=== PATIENT | female | born 1980 | race Caucasian/White ===

== ENCOUNTER 2017-06-10 01:55 | Emergency (ER) | payer OTHER ==
[~2017-06-10] VITALS: Ht 165.1 cm; Wt 117.9 kg
[~2017-06-10 01:55] MED LIST: ACET500 PO; ALBU90OI INH; ALPR1 PO; AMIT25 PO; BCP; BENZ100A PO; CEPH500 PO; CEPHALEXIN; CRUTCH4 USE; CYAN1000I IM; D3-5050000 UNIT PO; DOCU100 PO; ENOX40I SC; ENOX60I SC; ERGO50000 PO; FAMO20 PO; GABA100 PO; HYDACE10B PO; Kristalose20 GM PO; LORA.5 PO; Norco 5-325 Ta1 EACH PO; ONDA4 PO; ONDA4ODT SL; OXYACE5T PO; OXYC10TA19; Oxycodone HCl5 M1 PO; PARO20 PO; PROM25 PO; Pepcid20 MG PO; Percocet 5-3251 EACH PO; Phentermine HCl15 MG MT; Phentermine HCl30 MG PO; SERT50; SERT50 PO; SIME80CH PO; SULTRIDS PO; TIZANIDINE HCL4 MG PO; TRAM50; UNKOWN ABX; VENL25 MT; VIIBRYD20 MG PO; VITAMIN B12-FO1 EACH PO; Vistaril25 MG PO; WARF1; WARF5; Zanaflex4 MG PO
[2017-06-10 06:58] LABS: BASOPHILS ABSOLUTE AUTO 0.04 K/mm3 (0.00-0.23); BASOPHILS PERCENT AUTO 1 % (0-2); EOSINOPHILS ABSOLUTE AUTO 0.14 K/mm3 (0.00-0.68); EOSINOPHILS PERCENT AUTO 2 % (0-6); Hematocrit 41.2 % (33.0-51.0); Hemoglobin 13.8 g/dL (11.5-16.0); IMMATURE GRAN ABSOLUTE AUTO 0.04 K/mm3 (0.00-0.10); IMMATURE GRAN PERCENT AUTO 1 % (0-1); LYMPHOCYTES ABSOLUTE AUTO 2.47 K/mm3 (0.84-5.20); LYMPHOCYTES PERCENT AUTO 41 % (21-46); MONOCYTES ABSOLUTE AUTO 0.35 K/mm3 (0.16-1.47); MONOCYTES PERCENT AUTO 6 % (4-13); Mean Corpuscular HGB 30.1 pg (26.0-34.0); Mean Corpuscular HGB Conc 33.5 g/dL (31.5-36.5); Mean Corpuscular Volume 90 fL (80-100); Mean Platelet Volume 8.3 fL (9.1-12.4); NEUTROPHILS ABSOLUTE AUTO 3.06 K/mm3 (1.96-9.15); NEUTROPHILS PERCENT AUTO 50 % (41-73); Platelet Count 250 K/mm3 (150-400); RDW Coefficient Variation 12.3 % (11.7-14.2); RDW Standard Deviation 40.4 fL (35.1-46.3); Red Blood Cell Count 4.59 M/mm3 (3.80-5.20)
[2017-06-10 07:13] LABS: Anion Gap 6 mmol/L (6-16); Blood Urea Nitrogen 7 mg/dL (8-24); Bun/Creatinine Ratio 11.7 (12.0-20.0); CO2, Blood 26 mmol/L (21-32); Calcium, Blood 8.5 mg/dL (8.5-10.1); Chloride, Blood 109 mmol/L (98-108); Glomerular Filtration Rate >60 (60-); Glucose, Blood 95 mg/dL (70-99); Potassium, Blood 4.2 mmol/L (3.5-5.5); Sodium, Blood 141 mmol/L (136-145)
[2017-06-10] MEDS ORDERED: LORTAB 10 MG-3473 ML PO (07:38)
[2017-06-10] MEDS ORDERED: Prednisone20 MG PO (07:38)
== END 2017-06-10 07:49 | disposition home or self-care (01) ==
LOC: ER 01:55
PROVIDERS: Emergency Medicine
DX: J20.9 Acute bronchitis, unspecified (principal); F32.9 Major depressive disorder, single episode, unspecified; Z88.0 Allergy status to penicillin; Z91.040 Latex allergy status; Z88.1 Allergy status to other antibiotic agents; Z79.899 Other long term (current) drug therapy; Z86.718 Personal history of other venous thrombosis and embolism
CPT/HCPCS: 71046; 80048; 85025; 94640; 96361; 96374; 96375; 99283; J2405; J2930; J7030

== ENCOUNTER 2017-10-09 03:52 | Emergency (ER) | payer OTHER ==
[~2017-10-09] VITALS: Ht 165.1 cm; Wt 117.9 kg
[~2017-10-09 03:52] MED LIST changes: +LORTAB 10 MG-3473 ML PO; +Prednisone20 MG PO
[2017-10-09] MEDS ORDERED: SOMA250 MG PO (04:06)
[2017-10-09] MEDS ORDERED: Percocet 5-3251 EACH PO (05:12)
== END 2017-10-09 05:27 | disposition home or self-care (01) ==
LOC: ER 03:52
DX: M25.562 Pain in left knee (principal); M54.32 Sciatica, left side; Z88.0 Allergy status to penicillin; Z91.040 Latex allergy status; Z88.1 Allergy status to other antibiotic agents; Z79.899 Other long term (current) drug therapy; F32.9 Major depressive disorder, single episode, unspecified
CPT/HCPCS: 93971; 99284

== ENCOUNTER 2017-10-12 10:40 | Emergency (ER) | payer OTHER ==
[~2017-10-12] VITALS: Ht 165.1 cm; Wt 117.9 kg
[~2017-10-12 10:40] MED LIST changes: +SOMA250 MG PO
[2017-10-12] MEDS ORDERED: GABA300 PO (11:01)
[2017-10-12 11:53] LABS: BASOPHILS ABSOLUTE AUTO 0.02 K/mm3 (0.00-0.23); BASOPHILS PERCENT AUTO 0 % (0-2); EOSINOPHILS ABSOLUTE AUTO 0.02 K/mm3 (0.00-0.68); EOSINOPHILS PERCENT AUTO 0 % (0-6); Hematocrit 39.9 % (33.0-51.0); Hemoglobin 13.3 g/dL (11.5-16.0); IMMATURE GRAN ABSOLUTE AUTO 0.07 K/mm3 (0.00-0.10); IMMATURE GRAN PERCENT AUTO 1 % (0-1); LYMPHOCYTES ABSOLUTE AUTO 0.78 K/mm3 (0.84-5.20); LYMPHOCYTES PERCENT AUTO 5 % (21-46); MONOCYTES ABSOLUTE AUTO 1.22 K/mm3 (0.16-1.47); MONOCYTES PERCENT AUTO 9 % (4-13); Mean Corpuscular HGB 30.6 pg (26.0-34.0); Mean Corpuscular HGB Conc 33.3 g/dL (31.5-36.5); Mean Corpuscular Volume 92 fL (80-100); Mean Platelet Volume 8.5 fL (9.1-12.4); NEUTROPHILS ABSOLUTE AUTO 12.22 K/mm3 (1.96-9.15); NEUTROPHILS PERCENT AUTO 85 % (41-73); Platelet Count 285 K/mm3 (150-400); RDW Coefficient Variation 12.8 % (11.7-14.2); RDW Standard Deviation 43.3 fL (35.1-46.3); Red Blood Cell Count 4.34 M/mm3 (3.80-5.20); White Blood Cell Count 14.33 K/mm3 (4.00-11.30)
[2017-10-12 11:54] LABS: Bilirubin, Urine Neg (Neg); Blood, Urine 2+ (Neg); Glucose Qualitative, Urine Neg (Neg); Ketones, Urine 2+ (Neg); Leukocyte Esterase, Urine 2+ (Neg); Nitrite, Urine Neg (Neg); Protein, Urine 1+ (Neg); Urobilinogen, Urine 1+ (Normal)
[2017-10-12 12:03] LABS: Alanine Aminotransfer (ALT/SGP 80 U/L (12-78); Albumin, Blood 3.5 g/dL (3.4-5.0); Albumin/Globulin Ratio 0.9 (0.8-1.8); Alk Phos 120 U/L (50-136); Anion Gap 11 mmol/L (6-16); Aspartate Aminotrans (AST/SGOT 61 U/L (12-37); Bilirubin, Total 0.6 mg/dL (0.1-1.0); Blood Urea Nitrogen 13 mg/dL (8-24); Bun/Creatinine Ratio 20.6 (12.0-20.0); CO2, Blood 23 mmol/L (21-32); Calcium, Blood 8.4 mg/dL (8.5-10.1); Chloride, Blood 102 mmol/L (98-108); Creatinine, Blood 0.63 mg/dL (0.40-1.00); Globulin, Blood 3.7 g/dL (2.2-4.0); Glomerular Filtration Rate >60 (60-); Glucose, Blood 114 mg/dL (70-99); Potassium, Blood 3.9 mmol/L (3.5-5.5); Sodium, Blood 136 mmol/L (136-145); Total Protein, Blood 7.2 g/dL (6.4-8.2)
[2017-10-12 12:04] LABS: PCO2 Arterial 42.3 mmHg (35-45); PO2 Arterial 86.4 mmHg (80-100); pH Blood Arterial 7.38 (7.35-7.45)
[2017-10-12 12:06] LABS: Appearance, Urine Clear (Clear); Color, Urine Yellow (P-Yellow); Source, Urine Clean Catch
[2017-10-12 12:11] LABS: Bacteria Few /hpf; Squamous Epithelial Cells Few /hpf (Few)
[2017-10-12] MEDS ORDERED: Zithromax250 MG PO (15:02)
[2017-10-13] MEDS ORDERED: Percocet 5-3251 EACH PO (15:17)
== END 2017-10-12 15:38 | disposition home or self-care (01) ==
LOC: ER 10:40
PROVIDERS: Emergency Medicine; Nurse Practitioner Family
DX: J18.9 Pneumonia, unspecified organism (principal); F32.9 Major depressive disorder, single episode, unspecified; Z88.0 Allergy status to penicillin; Z91.040 Latex allergy status; Z79.899 Other long term (current) drug therapy
CPT/HCPCS: 36415; 36600; 71260; 80053; 81001; 81025; 82803; 83690; 84484; 85025; 87086; 93005; 93010; 96361; 96374; 99284; J2405; J7030; Q9967

== ENCOUNTER 2017-10-13 13:30 | Emergency (ER) | payer OTHER ==
[~2017-10-13] VITALS: Ht 170.2 cm; Wt 117.9 kg
[~2017-10-13 13:30] MED LIST changes: +GABA300 PO; +Zithromax250 MG PO
[2017-10-13] MEDS ORDERED: Percocet 5-3251 EACH PO (15:17)
== END 2017-10-13 15:30 | disposition home or self-care (01) ==
LOC: ER 13:30
DX: M54.42 Lumbago with sciatica, left side (principal); F32.9 Major depressive disorder, single episode, unspecified; Z88.0 Allergy status to penicillin; Z91.040 Latex allergy status; Z79.899 Other long term (current) drug therapy
CPT/HCPCS: 96372; 99283; J1885

== ENCOUNTER 2019-12-03 14:12 | Emergency (ER) | payer OTHER ==
[~2019-12-03] VITALS: Ht 165.1 cm; Wt 117.9 kg
== END 2019-12-03 15:44 | disposition home or self-care (01) ==
LOC: ER 14:12
DX: M79.89 Other specified soft tissue disorders (principal); Z88.0 Allergy status to penicillin; Z91.040 Latex allergy status; Z88.1 Allergy status to other antibiotic agents; Z79.899 Other long term (current) drug therapy; F32.9 Major depressive disorder, single episode, unspecified; Z86.718 Personal history of other venous thrombosis and embolism
CPT/HCPCS: 93971; 99284-25